=== PATIENT | female | born 1960 | race Caucasian/White ===

== ENCOUNTER → 2019-09-08 07:02 | Outpatient (CLI) | payer MEDICARE, MEDICAID, SELFPAY ==
[2019-08-24 10:29] VITALS: BMI 39.6
--- NOTE | 2019-09-08 07:09 | CT_ITS ---
HISTORY: Tobacco dependency, former smoker 1.5 packs/day x 40 years, quit 5 years ago, COPD, emphysema, Home O2, 260 lbs, diabetes. TECHNIQUE: Helically acquired images of the chest were obtained without IV contrast. Number of images including paperwork: [id number]. A radiation dose optimization technique was used for this scan. Scan was performed with the [facility] low dose lung cancer screening CT protocol. DLP 139.94 mGy-cm. CTDI 4.02 mGy. COMPARISON: None FINDINGS: Evaluation outside of the lungs somewhat limited due to noncontrast low-dose technique. VASCULATURE: Unremarkable as imaged. HEART/PERICARDIUM: Unremarkable. MEDIASTINUM: Unremarkable. ADENOPATHY: No pathologic appearing adenopathy. THYROID: Unremarkable visualized portions. LUNG PARENCHYMA: Moderate to severe emphysema with bullous changes. Apical scarring. Mild scarring in the middle lobe and lingula. Mild cylindrical bronchiectasis. Left upper lobe calcified nodules. 2 mm left lower lobe noncalcified subpleural nodule image 165. PLEURAL SPACES: Unremarkable. UPPER ABDOMEN: Grossly unremarkable. OSSEOUS AND SOFT TISSUE STRUCTURES: No acute skeletal findings. Degenerative changes. DEVICES: None. CT/Low Dose CT Lung Screening IMPRESSION: No suspicious appearing lung nodule detected. Lung-RADS 2. Continued annual screening should be considered. Individualized dose optimization techniques were used for this CT. at 2224 Reported and signed by: Lidia Whitney MD Electronically Signed: Lidia Whitney MD at 22:24 EDT Tel , Service support ,
--- NOTE | 2019-09-09 10:19 | PFT ---
INTRODUCTION: The patient is a 58-year-old female that presents for pulmonary function studies secondary to a diagnosis of COPD. Respiratory therapy reports good patient effort. Bronchodilators were used during testing. INTERPRETATION: Forced expiration spirometry demonstrates the presence of a mild large airways obstructive ventilatory defect. There was no significant response to aerosolized bronchodilators. Spirograms are of fair quality and do not plateau indicating slow emptying of the lungs. Body plethysmography was performed and reveals lung volumes to be within normal limits. Diffusing capacity by single breath CO is reduced at 49% of predicted. IMPRESSION: Irreversible mild large airways obstructive ventilatory defect with preserved lung volumes and disproportionate reduction in diffusing capacity.
== END ==
PROVIDERS: Family Provider Nurse Practitioner Family; PCP Nurse Practitioner Family; Referring Provider Internal Medicine Critical Care Medicine; Visit Provider Internal Medicine Critical Care Medicine
DX: J44.9 Chronic obstructive pulmonary disease, unspecified (principal); R91.1 Solitary pulmonary nodule; F17.211 Nicotine dependence, cigarettes, in remission
CPT/HCPCS: 94060; 94726; 94729; G0297

== ENCOUNTER → 2019-09-21 19:50 | Outpatient (CLI) | payer MEDICARE, MEDICAID, SELFPAY ==
[2019-08-24 10:29] VITALS: BMI 39.6
== END ==
PROVIDERS: Family Provider Nurse Practitioner Family; PCP Nurse Practitioner Family; Referring Provider Internal Medicine Critical Care Medicine; Visit Provider Internal Medicine Critical Care Medicine
DX: G47.33 Obstructive sleep apnea (adult) (pediatric) (principal)
CPT/HCPCS: 95811